=== PATIENT | female | born 1970 | race Caucasian/White ===

== ENCOUNTER 2025-07-13 12:26 | Inpatient (IN) | payer OTHER ==
[~2025-07-13] VITALS: Ht 167.6 cm; Wt 70.3 kg
[~2025-07-13 12:26] MED LIST: HYZAAR 100-12.1 EACH
--- NOTE | 2025-07-13 13:39 | NUR ---
PACIENTE ALERTA Y ORIENTADA POR 3, REFIERE POR ARRITMIAS, SE LE REALIZA EKG Y SE LE LUIS S/V, SE UBICA PARA SER EVALUADA.
--- NOTE | 2025-07-13 15:08 | NUR ---
SE ORIENTA A PTE SOBRE LUIS DE MUESTRAS ORDENADAS. PTE REFIERE COMPRENDER. SE LUIS MUESTRAS SIGUIENDO LAS MEDIDAS ASEPTICAS Y SE UBICA EN ESPERA DE RESULTADOS. DRA. PHIPPS DA MEDICAMENTO DE ORDEN MEDICA.
[2025-07-13 15:11] LABS: BASO % 0.3 % (0.1-1.2); EOS # 0.05 (0.04-0.54); EOS % 0.6 % (0.7-7.0); LYMPH # 2.68 (1.18-3.74); LYMPH % 34.0 % (19.3-53.1); MEAN PLATELET VOLUME 10.40 fl (9.4-12.4); MONO # 0.54 (0.24-0.82); MONO % 6.8 % (4.7-12.5); NEUT # 4.59 (1.56-6.13); NEUT % 58.2 % (34.0-71.1); RED CELL DISTRIBUTION WIDTH 12.2 % (11.6-14.4)
[2025-07-13 15:20] LABS: ERYTHROCYTE SEDIMENTATION RATE 23 mm/hr (0-30)
[2025-07-13 15:42] LABS: INR 0.96
[2025-07-13 15:43] LABS: URINE APPEARANCE Clear; URINE BILIRRUBIN Negative (NEGATIVE); URINE BLOOD Negative; URINE COLOR Yellow; URINE GLUCOSE Negative (NEGATIVE); URINE KETONE Negative (NEGATIVE); URINE LEUKOCYTE Negative; URINE NITRATE Negative; URINE PROTEIN Negative (NEGATIVE); URINE UROBILINOGEN 0.2 E.U./dl
[2025-07-13 15:44] LABS: URINE BACTERIA 47.9 uL (0.0-1933); URINE EPITHELIAL CELLS 14.6 uL (0.0-38.8); URINE RBC 5.2 uL (0.0-20.8); URINE WBC 15.0 uL (0.0-23.2)
[2025-07-13 15:53] LABS: URINE CAST 0.58 uL (0.0-1.40)
[2025-07-13 15:56] LABS: ALT/SGPT 57 U/L (12-78); AST/SGOT 28 U/L (15-37); BILIRUBIN TOTAL 0.33 mg/dL (0.3-1.2); BUN CREA RATIO 39 (7.0-25.0); CREATININE SERUM 0.46 mg/dL (0.55-1.02); GFR 141.03; GLOBULINA 3.3 G/DL (2.4-3.5); GLUCOSE FASTING 179 mg/dL (65-100); OSMOLALITY SERUM 288 MOSM/KG (275-295)
[2025-07-13] MEDS ORDERED: FAMOTIDINE/PF 20 MG in 0.9 % SODIUM CHLORIDE 8 ML IV PUSH SCH (20:08)
[2025-07-13] MEDS ORDERED: ATORVASTATIN CALCIUM 40 MG TABLET PO SCH (20:09)
[2025-07-13] MEDS ORDERED: DILTIAZEM HCL 25 MG/5 ML VIAL IV ONE (20:15)
[2025-07-13] MEDS ORDERED: ACETAMINOPHEN 500 MG GEL..CAP PO PRN (20:15)
[2025-07-13] MEDS ORDERED: ENOXAPARIN SODIUM 60 MG/0.6 ML SYRINGE SUBCUTANEO SCH (21:00)
[2025-07-13 22:16] VITALS: BP 152/75
[2025-07-13 22:57] VITALS: O2SAT 96
[2025-07-14] VITALS (7 sets, daily range): BP systolic 122–136; BP diastolic 74–84; O2SAT 95–98
[2025-07-14 07:12] LABS: CHOL HDL RATIO 2.6 (0-5.0); HDL 50 mg/dl (40-60)
[2025-07-14 07:22] LABS: LDL 40 mg/dl (0-130); VLDL 40 (0-39)
[2025-07-14 07:23] LABS: TSH < 0.005 uIU/mL (0.358-3.74)
[2025-07-14] MEDS ORDERED: METOPROLOL SUCCINATE 25 MG TAB.SR.24H PO SCH (09:00)
[2025-07-14] MEDS ORDERED: METOPROLOL TARTRATE 50 MG TABLET PO SCH (18:00)
[2025-07-15 02:42] VITALS: BP 132/84; O2SAT 96
[2025-07-15 05:39] VITALS: O2SAT 96
[2025-07-15 08:31] VITALS: BP 121/74; O2SAT 94
[2025-07-15] MEDS ORDERED: METHIMAZOLE 10 MG TABLET PO STA (09:03)
[2025-07-15] MEDS ORDERED: METHIMAZOLE 10 MG TABLET PO SCH (17:00)
[2025-07-15 17:32] VITALS: O2SAT 97
[2025-07-15] MEDS ORDERED: FAMOTIDINE/PF 20 MG in 0.9 % SODIUM CHLORIDE 8 ML IV PUSH SCH (21:00)
[2025-07-15 21:43] VITALS: O2SAT 92
[2025-07-16 00:56] VITALS: BP 134/80; O2SAT 98
[2025-07-16 05:52] VITALS: O2SAT 93
[2025-07-16 09:23] VITALS: BP 128/70; O2SAT 97
[2025-07-16 09:28] VITALS: O2SAT 96
[2025-07-16 16:45] VITALS: O2SAT 99
[2025-07-16 21:55] VITALS: BP 117/76
[2025-07-17 03:23] VITALS: BP 125/76; O2SAT 98
[2025-07-17 03:27] VITALS: O2SAT 96
[2025-07-17 09:22] VITALS: O2SAT 95
[2025-07-17 09:40] VITALS: BP 114/74; O2SAT 99
== END 2025-07-17 13:06 | disposition home or self-care (01) | DRG 645 ==
LOC: ER 12:26 → MEDJ 21:18 → MEDI 07-15 15:54
PROVIDERS: General Practice; Physician Assistant Medical; ADMIT Student in an Organized Health Care Education/Training Program; ATTEND Student in an Organized Health Care Education/Training Program
PROC: BW24ZZZ Computerized Tomography (CT Scan) of Chest and Abdomen (ICD-10-PCS; principal; 2025-07-13)
PROC: 4A12X4Z Monitoring of Cardiac Electrical Activity, External Approach (ICD-10-PCS; 2025-07-13)
PROC: B24BYZZ Ultrasonography of Heart with Aorta using Other Contrast (ICD-10-PCS; 2025-07-14)
PROC: BG44ZZZ Ultrasonography of Thyroid Gland (ICD-10-PCS; 2025-07-15)
DX: E05.90 Thyrotoxicosis, unspecified without thyrotoxic crisis or storm (principal); I50.9 Heart failure, unspecified; I11.0 Hypertensive heart disease with heart failure